=== PATIENT | male | born 1960 | race Hispanic/Latino ===

== ENCOUNTER 2018-01-21 02:08 | Emergency (ER) | payer SELFPAY ==
[2018-01-21 02:08] VITALS: BMI 25.8
[2018-01-21 02:14] VITALS: RESP 18
--- NOTE | 2018-01-21 02:24 | ED PDOC ---
Arrival/HPI - General Chief Complaint: Alcohol Ingestion Time Seen by Provider: 01/21/18 02:08 Historian: Patient - History of Present Illness Narrative History of Present Illness (Text): 01/21/18 02:21 57 year old male, with no significant past medical history, presents to the Emergency department via EMS for alcohol intoxication. Patient admits he was at the bar drinking tonight. He denies any drug use. Patient denies any current complaints. Patient denies any fever, chills, chest pain, shortness of breath, nausea, vomiting, diarrhea, urinary symptoms, back pain, neck pain, headache, dizziness, or any other complaints. Symptom Onset: Gradual Symptom Course: Unchanged Activities at Onset: Light Context: Other (bar) Past Medical History - Provider Review Nursing Documentation Reviewed: Yes - Tetanus Immunization Tetanus Immunization: Unknown - Musculoskeletal/Rheumatological Hx Falls: No - Psychiatric Hx Substance Use: Yes (smokes pot occasionally) - Surgical History Hx Orthopedic Surgery: Yes (back surgery; hand surgery) Family/Social History - Physician Review Nursing Documentation Reviewed: Yes Family/Social History: No Known Family HX Smoking Status: pot Hx Alcohol Use: Yes (occasional beer) Hx Substance Use: Yes (smokes pot occasionally) Allergies/Home Meds Allergies/Adverse Reactions: Allergies No Known Allergies Allergy (Verified 03/16/13 06:08) Home Medications: Home Meds Medication Instructions Recorded Confirmed RX: No Known Home Med 01/21/18 01/21/18 Review of Systems - Physician Review All systems were reviewed & negative as marked: Yes - Review of Systems Constitutional: absent: Fevers, Other (Chills) Respiratory: absent: SOB Cardiovascular: absent: Chest Pain Gastrointestinal: absent: Diarrhea, Nausea, Vomiting Genitourinary Male: absent: Dysuria, Frequency, Hematuria Musculoskeletal: absent: Back Pain, Neck Pain Neurological: absent: Headache, Dizziness Physical Exam Vital Signs Reviewed: Yes Vital Signs Temp Pulse Resp Pulse Ox 01/21/18 02:11 97.5 F L 67 18 100 Temperature: Afebrile Blood Pressure: Normal Pulse: Regular Respiratory Rate: Normal Appearance: Positive for: Well-Appearing, Non-Toxic, Comfortable Pain Distress: None Mental Status: Positive for: Alert and Oriented X 3 - Systems Exam Head: Present: Atraumatic, Normocephalic Pupils: Present: PERRL Extroacular Muscles: Present: EOMI Conjunctiva: Present: Normal Mouth: Present: Moist Mucous Membranes Neck: Present: Normal Range of Motion Respiratory/Chest: Present: Clear to Auscultation, Good Air Exchange. No: Respiratory Distress, Accessory Muscle Use Cardiovascular: Present: Regular Rate and Rhythm, Normal S1, S2. No: Murmurs Abdomen: No: Tenderness, Distention, Peritoneal Signs Back: Present: Normal Inspection Upper Extremity: Present: Normal Inspection. No: Cyanosis, Edema Lower Extremity: Present: Normal Inspection. No: Edema Neurological: Present: GCS=15, CN II-XII Intact Skin: Present: Warm, Dry, Normal Color. No: Rashes Psychiatric: Present: Alert, Oriented x 3, Normal Insight, Normal Concentration, Intoxicated Medical Decision Making ED Course and Treatment: 01/21/18 02:24 Impression: 57 year old male presents for alcohol intoxication. Plan: -- Blood sugar -- Sobriety -- Reassess and disposition Progress Notes: 01/21/18 06:28 pt attempted to elope er naked. pt sedated for his safety. 01/24/18 07:27 endorsed pending sobriety, reassess final dispo - Scribe Statement The provider has reviewed the documentation as recorded by the Octavia Arauz Provider Scribe Attestation: All medical record entries made by the Scribe were at my direction and personally dictated by me. I have reviewed the chart and agree that the record accurately reflects my personal performance of the history, physical exam, medical decision making, and the department course for this patient. I have also personally directed, reviewed, and agree with the discharge instructions and disposition. Disposition/Present on Arrival - Present on Arrival Any Indicators Present on Arrival: No History of DVT/PE: No History of Uncontrolled Diabetes: No Urinary Catheter: No History of Decub. Ulcer: No History Surgical Site Infection Following: None - Disposition Have Diagnosis and Disposition been Completed?: Yes Diagnosis: Alcohol intoxication Disposition: HOME/ ROUTINE Disposition Time: 03:00 Condition: IMPROVED Discharge Instructions (ExitCare): Alcohol Abuse and Alcoholism (DC) Referrals: [facility] at [facility] [Outside] - Follow up with primary Vero Castillo MD [Medical Doctor] - Follow up with primary Forms: [facility] (Macedonian)
[2018-01-21 03:25] LABS: ACETAMINOPHEN < 10.0 ug/ml (10.0-20.0); ALB/GLOB RATIO 1.3 (1.1-1.8); ALBUMIN 4.7 g/dL (3.0-4.8); ALT/SGPT 31 U/L (7-56); AST/SGOT 36 U/L (17-59); BLOOD UREA NITROGEN 21 mg/dL (7-21); CALCIUM 9.2 mg/dL (8.4-10.5); GFR NON-AFRICAN AMERICAN > 60; SALICYLATE < 1 mg/dL (2.0-20.0)
[2018-01-21 03:50] LABS: BASO # 0.02 K/mm3 (0.0-2.0); BASO % 0.3 % (0.0-3.0); EOS # 0.3 (0.0-0.7); EOS % 5.1 % (1.5-5.0); GRAN # 3.93 (1.4-6.5); GRAN % 60.6 % (50.0-68.0); HEMOGLOBIN 14.7 g/dL (14.0-18.0); LYMPH # 1.8 (1.2-3.4); LYMPH % 28.4 % (22.0-35.0); MEAN CELL VOLUME 93.8 fl (80.0-105.0); MEAN CORPUSCULAR HEMOGLOBIN 31.5 pg (25.0-35.0); MEAN CORPUSCULAR HGB CONC 33.6 g/dl (31.0-37.0); MEAN PLATELET VOLUME 9.8 fl (7.0-11.0); MONO # 0.4 (0.1-0.6); MONO % 5.6 % (1.0-6.0); RBC 4.66 10^6/uL (3.5-6.1); RED CELL DISTRIBUTION WIDTH 12.6 % (11.5-14.5); WHITE BLOOD COUNT 6.5 10^3/ul (4.5-11.0)
--- NOTE | 2018-01-21 07:09 | ED PDOC ---
Physical Exam Vital Signs Temp Pulse Resp BP Pulse Ox 01/21/18 05:19 71 18 122/77 100 01/21/18 04:00 91 H 18 132/85 100 01/21/18 02:11 97.5 F L 67 18 100 Finger Stick Blood Glucose: 132 Medical Decision Making ED Course and Treatment: 01/21/18 07:[address] Wild pending clinical sobriety 01/21/18 10:39 Attempt to arouse patient with sternal rub mild successful. Patient still noted to be stuporous on exam. Will continue to monitor. 01/21/18 15:22 Patient noted to ambulate without assistance. He is noted to have an even gait with no tremulousness noted. He is medically cleared for discharge. - Lab Interpretations Lab Results: 01/21/18 02:48 01/21/18 02:48 Lab Results 01/21/18 02:48: Alcohol, Quantitative 279 H 01/21/18 02:48: Salicylates < 1 L, Acetaminophen < 10.0 L 01/21/18 02:48: Sodium 144, Potassium 5.2 H, Chloride 103, Carbon Dioxide 30, Anion Gap 16, BUN 21, Creatinine 1.0, Est GFR ( Amer) > 60, Est GFR (Non- Af Amer) > 60, Random Glucose 134 H, Calcium 9.2, Magnesium 2.5 H, Total Bilirubin 0.5, AST 36, ALT 31, Alkaline Phosphatase 84, Total Protein 8.2, Albumin 4.7, Globulin 3.6, Albumin/Globulin Ratio 1.3 01/21/18 02:48: WBC 6.5, RBC 4.66, Hgb 14.7, Hct 43.7, MCV 93.8, MCH 31.5, MCHC 33.6, RDW 12.6, Plt Count 210, MPV 9.8, Gran % 60.6, Lymph % (Auto) 28.4, Dane % (Auto) 5.6, Eos % (Auto) 5.1 H, Baso % (Auto) 0.3, Gran # 3.93, Lymph # (Auto) 1.8, Dane # (Auto) 0.4, Eos # (Auto) 0.3, Baso # (Auto) 0.02 01/21/18 02:19: POC Glucose (mg/dL) 132 H - Medication Orders Current Medication Orders: Discontinued Medications Lorazepam (Ativan) 2 mg IM ONCE ONE; Protocol Stop: 01/21/18 06:20 Last Admin: 01/21/18 06:19 Dose: 2 mg IM Administration Charges Document 01/21/18 06:19 AD (Rec: 01/21/18 06:37 AD [id number]) Injection Site MAR Injection Site Right Deltoid Charges for Administration # of IM Administrations 1 Ziprasidone (Geodon Inj) 20 mg IM STAT STA; Protocol Stop: 01/21/18 06:20 Last Admin: 01/21/18 06:20 Dose: 20 mg IM Administration Charges Document 01/21/18 06:20 AD (Rec: 01/21/18 06:37 AD [id number]) Injection Site MAR Injection Site Left Deltoid Charges for Administration # of IM Administrations 1 Disposition/Present on Arrival - Present on Arrival Any Indicators Present on Arrival: No History of DVT/PE: No History of Uncontrolled Diabetes: No Urinary Catheter: No History of Decub. Ulcer: No History Surgical Site Infection Following: None - Disposition Have Diagnosis and Disposition been Completed?: Yes Diagnosis: Alcohol intoxication Disposition: HOME/ ROUTINE Disposition Time: 15:29 Patient Plan: Discharge Condition: IMPROVED Discharge Instructions (ExitCare): Alcohol Abuse and Alcoholism (DC) Referrals: Vero Castillo MD [Medical Doctor] - Follow up with primary [facility] at [facility] [Outside] - Follow up with primary Forms: [email or web address] (Maltese)
[2018-01-21 07:12] LABS: URINE BILIRUBIN NEGATIVE (NEGATIVE); URINE BLOOD NEGATIVE (NEGATIVE); URINE GLUCOSE (UA) NEGATIVE (NEGATIVE); URINE LEUKOCYTE ESTERASE NEGATIVE Leu/uL (NEGATIVE); URINE PROTEIN NEGATIVE mg/dL (<30 mg/dL); URINE UROBILINOGEN 0.2 E.U./dL (<1 E.U./dL)
[2018-01-21 07:13] LABS: URINE APPEARANCE CLEAR (CLEAR); URINE COLOR YELLOW (YELLOW)
[2018-01-21 07:25] LABS: BARBITURATES, UR NEGATIVE (NEGATIVE); BENZODIAZEPINES, UR NEGATIVE (NEGATIVE); OPIATES, UR NEGATIVE (NEGATIVE); PHENCYCLIDINE, UR NEGATIVE (NEGATIVE)
[2018-01-21 15:39] VITALS: BP 128/79; PULSE 88; TEMP 98.6; O2SAT 98
== END 2018-01-21 15:39 | disposition home or self-care (01) ==
LOC: EDBD → ED 02:08
DX: F10.129 Alcohol abuse with intoxication, unspecified (principal); Y90.8 Blood alcohol level of 240 mg/100 ml or more
CPT/HCPCS: 80053; 81003; 82948; 83735; 85025; 96372; 99284; G0480; J2060; J3486